=== PATIENT | female | born 2000 | race Caucasian/White ===

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

== ENCOUNTER 2020-05-20 12:02 | Emergency (ER) | payer OTHER, MEDICAID ==
[~2020-05-20] VITALS: Ht 160 cm; Wt 59.0 kg
[~2020-05-20 12:02] MED LIST changes: +KEFLEX500 M1 PO; +PHENERGAN 25 MG25 M1 PO
[2020-05-20] MEDS ORDERED: TRAMADOL 50 MG50 MG PO (13:21)
[2020-05-20] MEDS ORDERED: AMOXICILLIN 50500 MG PO (13:21)
[2020-05-20] MEDS ORDERED: MEDROLDOSEPACK PO (13:21)
[2020-05-20 13:39] VITALS: BP 121/73
== END 2020-05-20 13:40 | disposition home or self-care (01) ==
LOC: M.ERS 12:02
DX: H92.02 Otalgia, left ear (principal); Z88.6 Allergy status to analgesic agent